=== PATIENT | female | born 1980 | race Caucasian/White ===

== ENCOUNTER 2021-05-09 18:46 | Emergency (ER) | payer OTHER ==
[2021-05-09 19:26] VITALS: RESP 18
--- NOTE | 2021-05-09 20:27 | XR ---
EXAMINATION TYPE: XR knee complete RT DATE OF EXAM: 05/09/2021 COMPARISON: NONE HISTORY: Fall. Knee pain TECHNIQUE: 3 views FINDINGS: I see no fracture nor dislocation. Joint spaces are normal. There are no pathologic soft ti ssue calcifications. 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 IMPRESSION: No acute abnormality of the right knee.
--- NOTE | 2021-05-09 21:56 | US ---
EXAMINATION TYPE: US venous doppler duplex LE RT DATE OF EXAM: 05/09/2021 9:18 PM COMPARISON: NONE CLINICAL HISTORY: injury, bruising, redness, pain. Injury, redness, pain, bruising. No hx of DVT. Pat ient does not take blood thinners. SIDE PERFORMED: Right TECHNIQUE: The lower extremity deep venous system is examined utilizing real time linear array sonog micaela with graded compression, doppler sonography and color-flow sonography. VESSELS IMAGED: Common Femoral Vein Deep Femoral Vein Greater Saphenous Vein * Femoral Vein Popliteal Vein Small Saphenous Vein * Proximal Calf Veins (* superficial vessels) Right Leg: No evidence of DVT in veins imaged at this time. Hypoechoic area with hyperechoic center and vascular hilum seen within the right groin measuring 1.1 x 2.1 x 0.6 cm. IMPRESSION: No sign of right leg deep vein thrombosis.
[2021-05-09] MEDS ORDERED: SULFAMETHOX-TMP 800-160MG 1 EACH TAB PO STA (22:15)
[2021-05-09] MEDS ORDERED: CEPHALEXIN 500 MG CAP PO STA (22:15)
--- NOTE | 2021-05-09 22:18 | ED ---
Lower Extremity Injury HPI - General Chief Complaint: Extremity Injury, Lower Stated Complaint: rt knee pain Time Seen by Provider: 05/09/21 19:46 Source: patient Mode of arrival: ambulatory Limitations: no limitations - History of Present Illness Initial Comments: Patient is a 40-year-old female presenting to the emergency Department with complaints of an injury to her right leg that happened on Friday, 3 days ago. Patient states she was walking up a boat ramp when her entire right leg went through a hole on the ramp. She states that since then she's had some bruising and increased swelling to the medial aspect of her right knee. She states yesterday she started developing a low-grade temperature, just not feeling right. Fatigued than usual. She was concerned for cellulitis so she came in for evaluation. She states she has been ambulating with some soreness but does not feel like anything is broken. She denies history of blood clots, she takes no medications other than occasional Tylenol or Motrin. She denies any nausea or vomiting, her appetite has been normal. She has no further complaints at this time. - Related Data Previous Rx's Medication Instructions Recorded Cephalexin [Keflex] 500 mg PO Q6HR 7 Days #28 cap 05/09/21 Sulfamethox-Tmp 800-160Mg [Bactrim 1 each PO Q12HR 7 Days #14 tab 05/09/21 Ds] Allergies Allergy/AdvReac Type Severity Reaction Status Date / Time clindamycin Allergy Anaphylaxis Verified 05/09/21 19:26 Review of Systems ROS Statement: Those systems with pertinent positive or pertinent negative responses have been documented in the HPI. ROS Other: All systems not noted in ROS Statement are negative. Past Medical History Past Medical History: No Reported History History of Any Multi-Drug Resistant Organisms: None Reported Past Surgical History: No Surgical Hx Reported Past Psychological History: No Psychological Hx Reported Smoking Status: Never smoker Past Alcohol Use History: Rare Past Drug Use History: None Reported General Exam - General Exam Comments Initial Comments: GENERAL: Patient is well-developed and well-nourished. Patient is nontoxic and in no acute distress. HEAD: Atraumatic, normocephalic. EYES: Pupils equal round and reactive to light, extraocular movements intact, sclera anicteric, conjunctiva are normal. Eyelids were unremarkable. ENT: Moist mucous membranes. NECK: Normal range of motion, supple without lymphadenopathy or JVD. LUNGS: Unlabored respirations. Breath sounds clear to auscultation bilaterally and equal. No wheezes rales or rhonchi. HEART: Regular rate and rhythm without murmurs, rubs or gallops. MUSCULOSKELETAL: Does have full active range of motion of her right knee although painful at the end of age with knee flexion. His neurovascular intact bilateral lower extremities. Rest of extremities with adequate strength and normal range of motion. No clubbing or cyanosis. NEUROLOGICAL: Patient is alert and oriented x 3. Normal speech, normal gait. PSYCH: Normal mood, normal affect. SKIN: Warm, Dry, normal turgor. Patient has a large area of ecchymosis extending from the right medial thigh all of a down to the right lower leg she also has some bruising noted on the lateral aspect as well. She does have a small abrasion noted to the medial aspect of the right knee, there is erythema surrounding this, warmth and tenderness. Limitations: no limitations Course Vital Signs 05/09/21 05/09/21 19:21 23:03 Temperature 98.5 F 98.0 F Pulse Rate 79 66 Respiratory 18 18 Rate Blood Pressure 116/65 110/57 O2 Sat by Pulse 100 99 Oximetry Medical Decision Making - Medical Decision Making Patient is a 40-year-old female here 3 days after a right leg injury after her leg went through on hole on a boat ramp. She does have extensive bruising noted to her right leg, she has a small abrasion noted to the medial aspect with some surrounding erythema, warmth, consistent with cellulitis. An x-ray of the right knee reveals no acute fractures dislocations. I also did ultrasound of the right lower extremity, no evidence for DVT at this time. I discussed with patient that we will put her on antibiotics for cellulitis. I recommended using Brad wrap for support and compression, ankle pumps. I recommended following up with her primary care doctor one to 3 days. She is agreeable to this plan of care and she is stable for discharge. Case discussed with Dr. Byrne. Disposition Clinical Impression: Hematoma of right lower leg, Cellulitis of right leg Disposition: HOME SELF-CARE Condition: Stable Instructions (If sedation given, give patient instructions): Cellulitis (ED) Additional Instructions: Please return to the Emergency Department if symptoms worsen or any other concerns. Take both antibiotics as directed. Continue with compression of the leg, elevation, walking, ankle pumps as discussed. Follow-up with your primary care doctor. Prescriptions: Sulfamethox-Tmp 800-160Mg [Bactrim Ds] 1 each PO Q12HR 7 Days #14 tab Cephalexin [Keflex] 500 mg PO Q6HR 7 Days #28 cap Is patient prescribed a controlled substance at d/c from ED?: No Referrals: Salbador Munson MD [Primary Care Provider] - 1-2 days Time of Disposition: 22:18
[2021-05-09 23:04] VITALS: BP 110/57; PULSE 66; TEMP 98
== END 2021-05-09 23:03 | disposition home or self-care (01) ==
LOC: EC 18:46
DX: S80.11XA Contusion of right lower leg, initial encounter (principal); S80.01XA Contusion of right knee, initial encounter; L03.115 Cellulitis of right lower limb; W22.8XXA Striking against or struck by other objects, initial encounter; Y92.814 Boat as the place of occurrence of the external cause; Y93.01 Activity, walking, marching and hiking
CPT/HCPCS: 99284